=== PATIENT | female | born 1995 ===

== ENCOUNTER 2022-09-07 03:15 | Inpatient (IN) | payer OTHER ==
[2022-09-07] MEDS ORDERED: DEXTROSE 5%-LACTATED RINGERS 1,000 ML IV SCH (04:45)
[2022-09-07 05:05] VITALS: BMI 32.8
[2022-09-07] MEDS ORDERED: OXYTOCIN 30 UNITS in 0.9% NS 30 UNIT/500 ML INFUS.BAG IVPB SCH (05:15)
[2022-09-07 06:14] LABS: BASO % 0.5 % (0-2.0); EOS % 0.8 % (0-4.5); HEMATOCRIT 35.5 % (32.4-45.2); HEMOGLOBIN 11.5 GM/dL (10.7-15.3); LYMPH % 12.5 % (8-40); MCH 27.4 pg (25.7-33.7); MCHC 32.4 g/dl (32.0-36.0); MEAN CELL VOLUME 84.6 fl (80-96); MEAN PLT VOLUME 7.2 fl (7.5-11.1); NEUT % 79.2 % (42.8-82.8); PLATELET COUNT 344 10^3/uL (134-434); RDW 15.2 % (11.6-15.6); WHITE BLOOD COUNT 11.8 K/mm3 (4.0-10.0)
[2022-09-07 06:30] LABS: CALCIUM 8.3 mg/dL (8.5-10.1)
[2022-09-07 06:31] LABS: BLOOD UREA NITROGEN 7.2 mg/dL (7-18)
[2022-09-07 06:34] LABS: CREATININE 0.5 mg/dL (0.55-1.3)
[2022-09-07] MEDS ORDERED: morphine SULFATE 4 MG/ML VIAL ONE ×2 (07:34→14:51)
[2022-09-07] MEDS ORDERED: morphine SULFATE 4 MG/ML VIAL IVPB ONE (07:40)
[2022-09-07] MEDS ORDERED: SODIUM CHLORIDE 1,000 ML IV STA (07:49)
[2022-09-07] MEDS ORDERED: FENTANYL/BUPIVACAINE/NS/PF - PCEA - 50 ML DISP.SYRIN EP ONE (09:03)
[2022-09-07] MEDS ORDERED: NALOXONE HCL 0.4 MG/ML VIAL IVPUSH PRN (09:09)
[2022-09-07] MEDS ORDERED: FENTANYL/BUPIVACAINE/NS/PF - PCEA - 50 ML DISP.SYRIN EP SCH (09:15)
[2022-09-07 09:19] LABS: PROTHROMBIN TIME (PATIENT) 11.5 SEC (9.7-13.0)
[2022-09-07] MEDS ORDERED: KETOROLAC TROMETHAMINE 30 MG/1 ML VIAL ONE (12:06)
[2022-09-07] MEDS ORDERED: ONDANSETRON 4 MG/2 ML VIAL ONE (12:06)
[2022-09-07] MEDS ORDERED: morphine SULFATE (PF) 1 MG/2 ML SYRINGE ONE (12:06)
[2022-09-07] MEDS ORDERED: OXYTOCIN 10 UNIT/ML 10ML MDV ONE (12:06)
[2022-09-07] MEDS ORDERED: ceFAZolin SODIUM 1 GM VIAL ONE (12:12)
[2022-09-07] MEDS ORDERED: ACETAMINOPHEN 325 MG TABLET (FP) PO PRN (13:18)
[2022-09-07] MEDS ORDERED: CITRIC ACID/SODIUM CITRATE 30 ML UNIT-DOSE CUP PO ONE (13:20)
[2022-09-07] MEDS ORDERED: morphine SULFATE 4 MG/ML VIAL IVPB PRN (14:38)
[2022-09-07] MEDS: OXYTOCIN 20 UNITS in 0.9% NS 20 UNIT/1,000 ML INFUS.BAG IV SCH ×2 (14:45→21:42)
[2022-09-07 15:19] LABS: CORD BASE EXCESS -5.9 mmol/L (0-2); CORD HCO3 23.1 mmHg (20-29); CORD PCO2 59.1 mmHg (30-78); CORD pH 7.209 (7.14-7.44)
[2022-09-07 15:21] LABS: CORD BASE EXCESS -6.9 mmol/L (0-2); CORD HCO3 19.7 mmHg (20-29); CORD PCO2 43.1 mmHg (30-78); CORD pH 7.278 (7.14-7.44)
[2022-09-07] MEDS: FERROUS SO4 325 MG TABLET (FP) PO SCH (22:22)
[2022-09-08 08:58] LABS: BASO % 0.1 % (0-2.0); EOS % 0.2 % (0-4.5); HEMATOCRIT 26.9 % (32.4-45.2); HEMOGLOBIN 8.9 GM/dL (10.7-15.3); LYMPH % 4.5 % (8-40); MCH 27.8 pg (25.7-33.7); MEAN CELL VOLUME 84.2 fl (80-96); MONO % 4.7 % (3.8-10.2); NEUT % 90.5 % (42.8-82.8); PLATELET COUNT 275 10^3/uL (134-434); RBC 3.19 M/mm3 (3.60-5.2); RDW 14.9 % (11.6-15.6); WHITE BLOOD COUNT 16.6 K/mm3 (4.0-10.0)
[2022-09-08] MEDS: PRENATAL VITAMINS W/ FOLIC ACID TABLET (FP) PO SCH (09:54)
[2022-09-08] MEDS: FERROUS SO4 325 MG TABLET (FP) PO SCH ×2 (09:55→21:10)
[2022-09-08] MEDS: oxyCODONE HCL 5 MG TABLET PO PRN ×2 (09:55→18:58)
[2022-09-08] MEDS: SIMETHICONE 80 MG TAB.CHEW (FP) PO PRN ×2 (10:37→18:58)
[2022-09-08] MEDS ORDERED: BISACODYL 10 MG SUPP.RECT RC PRN (13:18)
[2022-09-08] MEDS: IBUPROFEN 600 MG TABLET (FP) PO PRN ×2 (13:46→21:11)
[2022-09-08] MEDS: CEPHALEXIN MONOHYDRATE 250 MG CAPSULE (FP) PO SCH (21:10)
[2022-09-09] MEDS: oxyCODONE HCL 5 MG TABLET PO PRN ×2 (00:53→12:47)
[2022-09-09] MEDS: SIMETHICONE 80 MG TAB.CHEW (FP) PO PRN ×3 (00:54→19:27)
[2022-09-09] MEDS: IBUPROFEN 600 MG TABLET (FP) PO PRN ×3 (06:32→19:27)
[2022-09-09] MEDS: FERROUS SO4 325 MG TABLET (FP) PO SCH ×2 (09:36→21:39)
[2022-09-09] MEDS: CEPHALEXIN MONOHYDRATE 250 MG CAPSULE (FP) PO SCH ×2 (09:36→21:40)
[2022-09-09] MEDS: PRENATAL VITAMINS W/ FOLIC ACID TABLET (FP) PO SCH (09:36)
[2022-09-09 21:19] VITALS: RESP 18
[2022-09-10] MEDS: IBUPROFEN 600 MG TABLET (FP) PO PRN (08:07)
[2022-09-10 09:09] LABS: BASO % 0.4 % (0-2.0); EOS % 0.8 % (0-4.5); HEMOGLOBIN 8.7 GM/dL (10.7-15.3); LYMPH % 10.8 % (8-40); MCH 27.9 pg (25.7-33.7); MCHC 33.4 g/dl (32.0-36.0); MEAN CELL VOLUME 83.6 fl (80-96); MEAN PLT VOLUME 7.1 fl (7.5-11.1); MONO % 5.6 % (3.8-10.2); NEUT % 82.4 % (42.8-82.8); PLATELET COUNT 344 10^3/uL (134-434); RBC 3.11 M/mm3 (3.60-5.2); RDW 15.4 % (11.6-15.6); WHITE BLOOD COUNT 9.1 K/mm3 (4.0-10.0)
[2022-09-10] MEDS: PRENATAL VITAMINS W/ FOLIC ACID TABLET (FP) PO SCH (10:49)
[2022-09-10] MEDS: CEPHALEXIN MONOHYDRATE 250 MG CAPSULE (FP) PO SCH (10:49)
[2022-09-10] MEDS: FERROUS SO4 325 MG TABLET (FP) PO SCH (10:49)
[2022-09-10 12:17] VITALS: BP 100/64; PULSE 71; TEMP 98
== END 2022-09-10 13:30 | disposition home or self-care (01) | DRG 540 ==
LOC: JDEL 03:15 → JLDR 03:40 → J3W 15:19
PROVIDERS: ADMIT Obstetrics & Gynecology Maternal & Fetal Medicine; ATTEND Obstetrics & Gynecology Maternal & Fetal Medicine
PROC: 10D00Z1 Extraction of Products of Conception, Low, Open Approach (ICD-10-PCS; principal; 2022-09-07)
DX: O76 Abnormality in fetal heart rate and rhythm complicating labor and delivery (principal); O42.02 Full-term premature rupture of membranes, onset of labor within 24 hours of rupture; O66.41 Failed attempted vaginal birth after previous cesarean delivery; O34.211 Maternal care for low transverse scar from previous cesarean delivery; Z3A.39 39 weeks gestation of pregnancy; Z37.0 Single live birth
CPT/HCPCS: 36415; 36600; 80048; 82803; 85025; 85610; 86780; 86850; 86900; 86901; 88307-TC; C9803-CS; U0003; U0005